=== PATIENT | female | born 2000 | race Caucasian/White ===

== ENCOUNTER 2021-12-16 10:58 | Emergency (ER) | payer BC ==
[2021-12-16 11:09] VITALS: RESP 18
[2021-12-16] MEDS ORDERED: DEXAMETHASONE SOD PHOSPHATE 10 MG/ML 1 ML VIAL IM STA (11:35)
--- NOTE | 2021-12-16 11:42 | ED ---
URI HPI - General Chief Complaint: Upper Respiratory Infection Stated Complaint: sorethroat Time Seen by Provider: 12/16/21 11:11 Source: patient, family, RN notes reviewed Mode of arrival: ambulatory Limitations: no limitations - History of Present Illness Initial Comments: This is a 21-year-old female who presents to the emergency department with a sor e throat and cough. On 12/05, she developed coughing, congestion, and a sore throat. She was put on a Z-Rowdy which she finished 5 days ago, and states that her symptoms did not improve at all. She continues to have fevers, coughing, and a sore throat. States that breathing is difficult due to how swollen her throat is and swallowing is painful. Denies any history of asthma or strep throat. Denies any sick contacts. Denies any chills, chest pain, palpitations, abdominal pain, nausea, vomiting, diarrhea, back pain, or headaches. MD Complaint: fever, cough, sore throat Onset/Timin -: days(s) - Related Data Previous Rx's Medication Instructions Recorded Codeine Phosphate/Guaifenesin 5 - 10 ml PO HS PRN 3 Days #120 ml 12/16/21 [Guaiatussin AC Liquid] Allergies Allergy/AdvReac Type Severity Reaction Status Date / Time No Known Allergies Allergy Verified 12/16/21 11:09 Review of Systems ROS Statement: Those systems with pertinent positive or pertinent negative responses have been documented in the HPI. ROS Other: All systems not noted in ROS Statement are negative. Past Medical History Past Medical History: No Reported History History of Any Multi-Drug Resistant Organisms: None Reported Past Surgical History: No Surgical Hx Reported Past Psychological History: No Psychological Hx Reported Smoking Status: Never smoker Past Alcohol Use History: None Reported Past Drug Use History: None Reported General Exam Limitations: no limitations General appearance: alert, in no apparent distress Head exam: Present: atraumatic, normocephalic, normal inspection Expanded Mouth exam: Present: muffled voice Throat exam: tonsillar erythema, tonsillomegaly (3+), tonsillar exudate, other (No uvula enlargement or deviation.). negative: R peritonsillar mass, L peritonsillar mass Respiratory exam: Present: normal lung sounds bilaterally. Absent: respiratory distress, wheezes, rales, rhonchi, stridor Cardiovascular Exam: Present: regular rate, normal rhythm, normal heart sounds. Absent: systolic murmur, diastolic murmur, rubs, gallop, clicks Neurological exam: Present: alert, oriented X3, CN II-XII intact Psychiatric exam: Present: normal affect, normal mood Skin exam: Present: warm, dry, intact, normal color. Absent: rash Course Vital Signs 12/16/21 12/16/21 11:05 13:13 Temperature 100.7 F H 99.2 F Pulse Rate 122 H 80 Respiratory 18 18 Rate Blood Pressure 148/91 110/72 O2 Sat by Pulse 97 98 Oximetry Medical Decision Making - Medical Decision Making This is a 21-year-old female presents who presents to the emergency department for a sore throat, coughing, and fever. Patient noted to have significant tonsillar hypertrophy and exudates. Patient tested positive for mono. IM Decadron provided for swelling and inflammation of the throat. Advised that this is a viral process and there are not any specific medications we can provide to treat this other than helping with her symptoms. Advised symptomatic management with alternating Tylenol and ibuprofen for fevers and pain. Rx for guanfacine with codeine cough syrup prescribed. She is advised to take this at night and avoid driving or operating machinery on this, as it will make her sleepy/groggy. Also advised that she is considered contagious with transmission via saliva. She is advised to practice strict hand washing precautions to avoid blowing her nose or coughing and then touching objects were other people. Also instructed her to avoid contact sports or any situations that could put her at risk for abdominal injury or trauma for the next 2 months, as there is a risk of splenic rupture. Chest x-ray consistent with a bronchitis, which is consistent with a viral process such as the mono. I informed the patient that she may continue to experience fatigue for the next couple of months even after the other symptoms have resolved. Return precautions reviewed in depth, the patient is instructed to return to the emergency department with any new, worsening, or concerning symptoms. Patient verbalized understanding. This case was discussed in detail with the attending ED physician. Presentation, findings, and treatment plan discussed in detail as well. - Lab Data Lab Results 12/16/21 12/16/21 12/16/21 Range/Units 11:56 11:56 11:56 Coronavirus (PCR) (Not Detectd) Heterophile Antibody Positive (Negative) Influenza Type A RNA Not Detected (Not Detectd) Influenza Type B (PCR) Not Detected (Not Detectd) Group A Strep Rapid Negative (Negative) 12/16/21 Range/Units 11:56 Coronavirus (PCR) Not Detected (Not Detectd) Heterophile Antibody (Negative) Influenza Type A RNA (Not Detectd) Influenza Type B (PCR) (Not Detectd) Group A Strep Rapid (Negative) - Radiology Data Radiology results: report reviewed, image reviewed Disposition Clinical Impression: Mononucleosis Disposition: HOME SELF-CARE Instructions (If sedation given, give patient instructions): Mononucleosis (ED) Additional Instructions: Return to the emergency department with any new, worsening, or concerning symptoms. Treat symptoms with supportive care, including Tylenol and Ibuprofen for fevers and pain. Take the cough syrup primarily at night, as it will make you sleepy and groggy. Practice precautions in terms of limiting saliva spread, including washing hands after coughing or sneezing. Avoid any contact sports for 1-2 months. Prescriptions: Codeine Phosphate/Guaifenesin [Guaiatussin AC Liquid] 5 - 10 ml PO HS PRN 3 Days #120 ml PRN Reason: Cough Is patient prescribed a controlled substance at d/c from ED?: No Referrals: Bautista Dow DO [Primary Care Provider] - 1-2 days
--- NOTE | 2021-12-16 12:33 | XR ---
EXAMINATION TYPE: XR chest 2V DATE OF EXAM: 12/16/2021 COMPARISON: NONE TECHNIQUE: PA and lateral views submitted. HISTORY: Cough FINDINGS: The lungs are clear and there is no pneumothorax, pleural effusion, or focal pneumonia. Perihilar i nterstitial changes. IMPRESSION: 1. Correlate for bronchitis or mild interstitial pneumonitis..
[2021-12-16 13:14] VITALS: BP 110/72; PULSE 80; TEMP 99.2
== END 2021-12-16 13:14 | disposition home or self-care (01) ==
LOC: EC 10:58
DX: B27.90 Infectious mononucleosis, unspecified without complication (principal); Z20.822 Contact with and (suspected) exposure to COVID-19
CPT/HCPCS: 36415; 86308; 87081; 87430; 87502; 87635; 71046; 99283; 96372; J1100